=== PATIENT | male | born 1985 | race Hispanic/Latino ===

== ENCOUNTER 2018-06-11 20:25 | Emergency (ER) | payer SELFPAY ==
--- NOTE | 2018-06-11 21:27 | EDPHYS ---
Physician Documentation [facility] Name: Sergo Eric Age: 32 yrs Sex: Male : 1985 Arrival Date: 06/11/2018 Time: 20:31 Bed 13 Private MD: ED Physician Roel Lopez HPI: 06/11 21:16 This 32 yrs old Male presents to ER via Wheelchair with complaints of STING kb RAY BITE. 21:16 The patient presents with an injury, pain, that is acute, a puncture wound, sting ray. kb The complaints affect the left lopez. Context: [place] resulted from stung by sting ray, the patient can fully bear weight, the patient is able to ambulate. Onset: The symptoms/episode began/occurred just prior to arrival. Modifying factors: The symptoms are alleviated by nothing. the symptoms are aggravated by nothing. Associated signs and symptoms: The patient has no apparent associated signs or symptoms. Treatment prior to arrival includes: no previous treatment. Severity of symptoms: At their worst the symptoms were moderate, in the emergency department the symptoms are unchanged. The patient has not experienced similar symptoms in the past. The patient has not recently seen a physician. Historical: - Allergies: 20:42 No Known Allergies; aj1 - Home Meds: 20:42 None [Active]; aj1 - PMHx: 20:42 None; aj1 - Immunization history:: Flu vaccine is not up to date. - Social history:: Smoking status: Patient/guardian denies using tobacco. - Ebola Screening: : Patient denies travel to an Ebola-affected area in the 21 days before illness onset. ROS: 21:17 Constitutional: Negative for fever, chills, and weight loss, Cardiovascular: Negative kb for chest pain, palpitations, and edema, Respiratory: Negative for shortness of breath, cough, wheezing, and pleuritic chest pain, Abdomen/GI: Negative for abdominal pain, nausea, vomiting, diarrhea, and constipation, Back: Negative for injury and pain, MS/Extremity: Negative for injury and deformity, Neuro: Negative for headache, weakness, numbness, tingling, and seizure. 21:17 Skin: Positive for puncture. Exam: 21:17 Constitutional: This is a well developed, well nourished patient who is awake, alert, kb and in no acute distress. Head/Face: Normocephalic, atraumatic. Chest/axilla: Normal chest wall appearance and motion. Nontender with no deformity. No lesions are appreciated. Cardiovascular: Regular rate and rhythm with a normal S1 and S2. No gallops, murmurs, or rubs. Normal PMI, no JVD. No pulse deficits. Respiratory: Lungs have equal breath sounds bilaterally, clear to auscultation and percussion. No rales, rhonchi or wheezes noted. No increased work of breathing, no retractions or nasal flaring. Abdomen/GI: Soft, non-tender, with normal bowel sounds. No distension or tympany. No guarding or rebound. No evidence of tenderness throughout. MS/ Extremity: Pulses equal, no cyanosis. Neurovascular intact. Full, normal range of motion. Neuro: Awake and alert, GCS 15, oriented to person, place, time, and situation. Cranial nerves II-XII grossly intact. Motor strength 5/5 in all extremities. Sensory grossly intact. Cerebellar exam normal. Normal gait. 21:17 Skin: injury, puncture(s), that are superficial, of the left lopez. Vital Signs: 20:42 BP 121 / 81; Pulse 81; Resp 18; Temp 98.7; Pulse Ox 100% on R/A; aj1 MDM: 21:11 Patient medically screened. kb 21:11 Data reviewed: vital signs, nurses notes. Data interpreted: Pulse oximetry: on room air kb is 100 %. Interpretation: normal. Counseling: I had a detailed discussion with the patient and/or guardian regarding: the historical points, exam findings, and any diagnostic results supporting the discharge/admit diagnosis, radiology results, the need for outpatient follow up, a family practitioner, to return to the emergency department if symptoms worsen or persist or if there are any questions or concerns that arise at home. 06/11 20:45 Order name: Tib Fib Left XRAY; Complete Time: 10:37 kb 06/11 20:35 Order name: Misc. Order: immerse area in hot water; Complete Time: 21:47 snw Administered Medications: 21:45 Drug: Tetanus-Diphtheria Toxoid Adult 0.5 ml {Culinary Specialist: [employer]. Exp: ao 06/04/2020. Lot #: [id number]. } Route: IM; Site: right deltoid; 22:00 Follow up: Response: No adverse reaction ao 21:46 Drug: [place] (7.5 mg-325 mg) 1 tabs Route: PO; ao 22:30 Follow up: Response: No adverse reaction ao 21:46 Drug: Doxycycline 100 mg Route: PO; ao 22:30 Follow up: Response: No adverse reaction ao Disposition: 06/11/18 21:26 Discharged to Home. Impression: Puncture wound without foreign body of lower leg. - Condition is Stable. - Discharge Instructions: Puncture Wound, [id number]. - Prescriptions for Doxycycline Hyclate 100 mg Oral Tablet - take 1 tablet by ORAL route every 12 hours; 20 tablet. - Medication Reconciliation Form, Thank You Letter, Antibiotic Education, Prescription Opioid Use form. - Follow up: Emergency Department; When: As needed; Reason: Worsening of condition. Follow up: Private Physician; When: 2 - 3 days; Reason: Recheck today's complaints, Continuance of care, Re-evaluation by your physician. Addendum: 06/14/2018 17:26 Co-signature as Attending Physician, Roel Lopez MD. g s Signatures: Dispatcher [employer] EDKymberly Loja, AZUL-C MOBILE MARKETING MANAGER-Ckb Luana Dominguez RN RN aj1 Ilene Quinn, MOBILE MARKETING MANAGER-C MOBILE MARKETING MANAGER-Csnw Brennen Gibson RN RN Roel Lofton MD MD Corrections: (The following items were deleted from the chart) 06/11 21:56 21:26 06/11/2018 21:26 Discharged to Home. Impression: Puncture wound without foreign ao body of lower leg. Condition is Stable. Forms are Medication Reconciliation Form, Thank You Letter, Antibiotic Education, Prescription Opioid Use. Follow up: Emergency Department; When: As needed; Reason: Worsening of condition. Follow up: Private Physician; When: 2 - 3 days; Reason: Recheck today's complaints, Continuance of care, Re-evaluation by your physician. kb
--- NOTE | 2018-06-11 21:27 | ER ---
Nurse's Notes [facility] Name: Sergo Eric Age: 32 yrs Sex: Male : 1985 Arrival Date: 06/11/2018 Time: 20:31 Bed 13 Private MD: Diagnosis: Puncture wound without foreign body of lower leg Presentation: 06/11 20:35 Presenting complaint: Patient states: They were fishing and he got stung by a sting aj1 ray. Reports pain to left lower leg. Puncture wound noted to left lower leg. Transition of care: patient was not received from another setting of care. Onset of symptoms was June 11, 2018 at 20:00. Risk Assessment: Do you want to hurt yourself or someone else? Patient reports no desire to harm self or others. Initial Sepsis Screen: Does the patient meet any 2 criteria? No. Patient's initial sepsis screen is negative. Does the patient have a suspected source of infection? No. Patient's initial sepsis screen is negative. Care prior to arrival: None. 20:35 Method Of Arrival: Wheelchair aj1 20:35 Acuity: ZOEY 4 aj1 Triage Assessment: 20:42 General: Appears in no apparent distress. comfortable, Behavior is calm, cooperative, aj1 appropriate for age. Pain: Complains of pain in left leg. Neuro: Level of Consciousness is awake, alert, obeys commands. Cardiovascular: Patient's skin is warm and dry. Respiratory: Airway is patent Respiratory effort is even, unlabored, Respiratory pattern is regular, symmetrical. Historical: - Allergies: 20:42 No Known Allergies; aj1 - Home Meds: 20:42 None [Active]; aj1 - PMHx: 20:42 None; aj1 - Immunization history:: Flu vaccine is not up to date. - Social history:: Smoking status: Patient/guardian denies using tobacco. - Ebola Screening: : Patient denies travel to an Ebola-affected area in the 21 days before illness onset. Screenin:55 Abuse screen: Denies threats or abuse. Denies injuries from another. Nutritional ao screening: No deficits noted. Tuberculosis screening: No symptoms or risk factors identified. Fall Risk None identified. Vital Signs: 20:42 BP 121 / 81; Pulse 81; Resp 18; Temp 98.7; Pulse Ox 100% on R/A; aj1 ED Course: 20:31 Patient arrived in ED. es 20:37 Triage completed. aj1 20:42 Arm band placed on Patient placed in waiting room. aj1 21:11 Kymberly Deleon FNP-C is [facility]. kb 21:11 Roel Lopez MD is Attending Physician. kb 21:27 Brennen Gibson, RN is Primary Nurse. ao 21:31 Tib Fib Left XRAY In Process Unspecified. EDMS 21:55 Patient has correct armband on for positive identification. Pulse ox on. NIBP on. ao 21:55 No provider procedures requiring assistance completed. Patient did not have IV access ao during this emergency room visit. Administered Medications: 21:45 Drug: Tetanus-Diphtheria Toxoid Adult 0.5 ml {Dance Therapist: [email or web address]. Exp: ao 06/04/2020. Lot #: [id number]. } Route: IM; Site: right deltoid; 22:00 Follow up: Response: No adverse reaction ao 21:46 Drug: [place] (7.5 mg-325 mg) 1 tabs Route: PO; ao 22:30 Follow up: Response: No adverse reaction ao 21:46 Drug: Doxycycline 100 mg Route: PO; ao 22:30 Follow up: Response: No adverse reaction ao Outcome: 21:26 Discharge ordered by . kb 21:55 Discharged to home ambulatory. ao 21:55 Condition: stable 21:55 Discharge instructions given to patient, Instructed on discharge instructions, follow up and referral plans. Demonstrated understanding of instructions, follow-up care, medications, Prescriptions given X 1. 21:56 Patient left the ED. ao Signatures: Dispatcher [employer] EDWI Kymberly Deleon FNP-C FNP-Ckb Johnson, Angela, RN RN aj1 Eloina Queen Alex, RN RN ao
[2018-06-11] MEDS ORDERED: DOXYCYCLINE 100 MG CAP PO ONE (21:37)
[2018-06-11] MEDS ORDERED: TETANUS & DIPHTHERIA TOX,ADULT 0.5 ML VIAL ONE (21:38)
[2018-06-11] MEDS ORDERED: HYDROCODONE/APAP 7.5/325 MG TAB ONE (21:38)
--- NOTE | 2018-06-11 21:48 | RAD REPORT ---
EXAM DESCRIPTION: Florence Millan Left06/11/2018 9:31 pm CLINICAL HISTORY: Left leg pain status post injury. Sting ray bite FINDINGS: No fracture is seen. A radiopaque foreign body is not seen
== END 2018-06-11 21:56 | disposition home or self-care (01) ==
LOC: ER 20:25
DX: S81.832A Puncture wound without foreign body, left lower leg, initial encounter (principal); W56.89XA Other contact with other nonvenomous marine animals, initial encounter; Y93.9 Activity, unspecified; Y92.832 Beach as the place of occurrence of the external cause; Z23 Encounter for immunization
CPT/HCPCS: 90714; 99284